=== PATIENT | male | born 1955 | race Caucasian/White ===

== ENCOUNTER 2016-07-30 09:09 | Inpatient (IN) | payer BC ==
--- NOTE | 2016-07-26 18:20 | HP ---
HISTORY AND PHYSICAL: DATE OF ADMISSION/SURGERY: 07/30/16 ATTENDING SURGEON: Dr. Ugarte (DICTATED BY WEST MONTENEGRO) PROCEDURE: Right total knee arthroplasty. CHIEF COMPLAINT: Right knee pain. HISTORY OF PRESENT ILLNESS: Mr. Hall is a 61-year-old gentleman with complaints of right knee pain. He has failed conservative management and has elected to proceed with a right total knee arthroplasty which is scheduled for 07/30/[address] Ugarte. PAST MEDICAL HISTORY: 1. Abdominal aortic aneurysm. 2. Thoracic aortic aneurysm. 3. Anemia. 4. Depression. 5. Anxiety. 6. Hypertension. 7. Sleep apnea. PAST SURGICAL HISTORY: 1. AAA repair. 2. Left total knee arthroplasty. 3. Bariatric surgery. 4. Tonsillectomy. CURRENT MEDICATIONS: 1. Altace. 2. Toprol. 3. Lipitor. 4. Lexapro. 5. Women's one-a-day. 6. Citracal. 7. Vitamin D. 8. Vitamin B12. 9. Vitamin D3. 10. Xanax. 11. Aspirin. ALLERGIES: To BISMUTH and ERYTHROMYCIN. FAMILY HISTORY: Heart disease and hypertension. SOCIAL HISTORY: A 61-year-old gentleman who lives with his . He does not smoke or use drugs. Uses occasional alcohol. REVIEW OF SYSTEMS: A complete 14-point review of systems was reviewed with the patient, was positive for mild anemia. PHYSICAL EXAMINATION GENERAL: Well developed, well nourished, in no acute distress. VITAL SIGNS: Stands 6 feet 3 inches tall, weighs 305 pounds. Blood pressure is 139/83, heart rate 55. HEENT: Normocephalic, atraumatic. NECK: Supple. PULMONARY: The lungs are clear to auscultation bilaterally. CARDIO: Regular rate and rhythm. ABDOMEN: Soft, nontender, nondistended. NEUROLOGICAL: He is alert and oriented x3. Cranial nerves II through XII are intact. MUSCULOSKELETAL: Right lower extremity: The skin is intact. He has no open wounds or abrasions. There is a [id number] joint effusion. He has tenderness over the medial and lateral joint line. His lower extremity muscle group strengths are intact at 5/5. He has intact sensation, 2+ dorsalis pedis pulses. ASSESSMENT AND PLAN: Mr. Hall is a 61-year-old gentleman with complaints of right knee pain secondary to advanced osteoarthritis. He has failed conservative management and has elected to proceed with a right total knee arthroplasty which is scheduled for 07/30/[address] Ugarte discussed the risks and benefits of the surgery and all of his questions were answered. Coumadin, Colace, and Percocet were sent to his pharmacy for postoperative pain control and DVT prophylaxis. He will see Dr. Ugarte back 2 weeks after the surgery. WEST MONTENEGRO [id number]/[facility] #: [id number] MTDMacy
[~2016-07-30 09:09] MED LIST: Buffered Lidocaine 0.9% SYRIN* 5 ML/SYR SYRINGE INTRADERM ONE; Buffered Lidocaine 0.9% SYRIN* 5 ML/SYR SYRINGE ONE; Dexamethasone IV* 4 MG/ML 1 ML (4 MG) ONE; Famotidine IV* 10 MG/ML 2 ML (20 mg) IV ONE; Famotidine IV* 10 MG/ML 2 ML (20 mg) ONE; KETAMINE HCL* 50 MG/ML 10 ML VIAL ONE; Ketorolac INJ* 30 MG/ML 1 ML VIAL ONE; Lidocaine 2% PF * 5 ML VIAL ONE; Midazolam* 1 MG/ML 5 ML VIAL (5 MG) ONE; Ondansetron INJ* 2 MG/ML VIAL ONE; Propofol* 10 MG/ML 20 ML BTL IV PUSH ONE; ceFAZolin 2 GM PREMIX(*) 2 GM/50 ML BAG IVPB ONE; fentaNYL* 50 MCG/ML 2 ML VIAL (100 MCG VIAL) ONE
[2016-07-30] MEDS ORDERED: Bupivacaine 0.5% SDV PF* 30 ML VIAL ONE (10:38)
[2016-07-30] MEDS ORDERED: Morphine PF AMP (0.5MG/ML)* 5 MG/10 ML AMP ONE (10:38)
[2016-07-30] MEDS ORDERED: Propofol* 500 MG/50 ML BTL ONE (10:38)
[2016-07-30] MEDS ORDERED: Midazolam* 1 MG/ML 5 ML VIAL (5 MG) ONE (11:48)
[2016-07-30] MEDS ORDERED: Glycopyrrolate IV* 0.2 MG/ML 1 ML VIAL ONE (12:00)
[2016-07-30] MEDS ORDERED: fentaNYL* 50 MCG/ML 2 ML VIAL (100 MCG VIAL) IV PRN (12:35)
[2016-07-30] MEDS ORDERED: Ondansetron INJ* 2 MG/ML VIAL IV PRN ×2 (12:35→12:37)
[2016-07-30] MEDS ORDERED: DiMENhydriNATE IV* 50 MG/ML VIAL IV PUSH PRN (12:35)
[2016-07-30] MEDS ORDERED: Phenylephrine INJ* 50 MG in NS 0.9% 250 ML* 245 ML IV PRN (12:35)
[2016-07-30] MEDS ORDERED: oxyCODONE/Acetamin 5/325 MG* TAB PO PRN ×2 (12:37)
[2016-07-30] MEDS ORDERED: Lactated Ringers 500 ml BAG* 500 ML IV PRN (12:37)
[2016-07-30] MEDS ORDERED: diPHENhydraMINE IV* 50 MG/ML 1 ml VIAL (BENADRYL) IV PRN (12:37)
[2016-07-30] MEDS ORDERED: EPHEDrine (Pressors)* 50 MG/ML VIAL IV PUSH PRN (12:37)
[2016-07-30] MEDS ORDERED: Ketorolac INJ* 30 MG/ML 1 ML VIAL IV PRN (12:37)
[2016-07-30] MEDS ORDERED: Naloxone* 0.4 MG/ML 1 ML VIAL IV PRN (12:45)
[2016-07-30] MEDS ORDERED: Ropivacaine* 300 MG in NS 0.9% 250 ML* 240 ML EPIDURAL SCH (13:00)
[2016-07-30] MEDS ORDERED: Polyethylene Glycol 3350* 17 GM PACKET PO PRN (14:24)
[2016-07-30] MEDS ORDERED: Magnesium Hydroxide LIQ* 30 ML UDC PO PRN (14:24)
[2016-07-30] MEDS ORDERED: Bisacodyl SUPP* 10 MG SUPP PR PRN (14:24)
[2016-07-30] MEDS ORDERED: Acetaminophen TAB* 325 MG PO PRN (14:24)
[2016-07-30] MEDS ORDERED: ALPRAZolam TAB* 0.25 MG PO PRN (14:28)
--- NOTE | 2016-07-30 16:12 | RAD ---
HISTORY: Status post right knee arthroplasty COMPARISONS: May 29, 2016 VIEWS: 2, Frontal and lateral views of the right knee FINDINGS: BONE DENSITY: Normal. BONES: The patient is status post right knee arthroplasty. There is no hardware failure or osteolysis. JOINTS: The patient is status post right knee arthroplasty ALIGNMENT: There is no dislocation. SOFT TISSUES: There are postsurgical changes to the soft tissues OTHER FINDINGS: None. IMPRESSION: STATUS POST RIGHT KNEE ARTHROPLASTY
[2016-07-30] MEDS ORDERED: Warfarin TAB(*) 6 MG PO ONE (17:00)
--- NOTE | 2016-07-30 17:11 | CONS ---
CC: Dr. Mckenzie Ugarte; Dr. Mcdermott, [place], [place] * CONSULTATION REPORT: DATE OF CONSULT: 07/30/16 REQUESTING PHYSICIAN FOR CONSULT: Dr. Mckenzie Ugarte. PRIMARY CARE PROVIDER: Dr. Mcdermott [place], [place]. ATTENDING PHYSICIAN WHILE IN THE HOSPITAL: Pablo Tanner MD (report dictated by Woo Vargas NP) REASON FOR MEDICAL CONSULTATION: Evaluation and medical management of comorbid medical problems. HISTORY OF PRESENT ILLNESS: Mr. Hall is a 61-year-old male patient with a history of osteoarthritis, who presented to Dr. Ugarte In the outpatient setting with complaints of right knee pain. He had had his left knee replaced previously. He was failing outpatient conservative management and elected to proceed with a right total knee. He underwent the procedure today. He does carry a history of AAA, thoracic aneurysm, anemia, depression, anxiety, hypertension, sleep apnea and because of this, we are asked to evaluate in consult. He was evaluated in the PACU. He says he is feeling well. He says he feels a little sleepy but he denies any chest pain, no shortness of breath, no abdominal pain. He says he cannot feel his legs yet. He did receive Duramorph and spinal anesthesia and he has an epidural. He is unable to plantar or dorsiflex the feet but he says other than these complaints, he is feeling well and his pain is well controlled. Because of his medical complexity, we are asked to evaluate in consult. PAST MEDICAL HISTORY: Significant for: 1. AAA, status post repair. 2. Thoracic aortic aneurysm which is followed by Dr. Rudd in [place]. 3. Anemia. 4. Depression. 5. Anxiety. 6. Hypertension. 7. OSVALDO. 8. CAD. PAST SURGICAL HISTORY: 1. He has had a AAA repair. 2. He has had a left total knee replacement. 3. Status post right total knee replacement today. 4. Bariatric surgery. 5. Tonsillectomy. HOME MEDICATIONS: According to the preop list includes: 1. Multivitamin 1 tablet p.o. b.i.d. 2. Toprol-XL 25 mg daily. 3. Ramipril 2 tabs p.o. q.p.m. 4. Lipitor 20 mg p.o. q.p.m. 5. Lexapro 10 mg p.o. q.a.m. 6. Vitamin B12 one tablet sublingual q.a.m. 7. Caltrate with vitamin D 2 tablets p.o. b.i.d. 8. Amino acid 400 mg p.o. q.a.m. 9. Aspirin 81 mg daily. 10. Xanax 0.25 mg p.o. daily as needed. ALLERGIES: To medications include: 1. PEPTO-BISMOL. 2. ERYTHROMYCIN. FAMILY HISTORY: Reviewed, noncontributory. SOCIAL HISTORY: He does not smoke. He occasionally drinks may be 1 to 2 times a week. His surrogate decision maker is his . REVIEW OF SYSTEMS: There is no documented fever. He denied having any significant weight change. There was no double vision. There was no ear discharge. He denies having any rhinorrhea. No sore throat. No thyroid enlargement. Denies having any chest pain. No orthopnea. No nocturnal dyspnea. There is no abdominal pain. No nausea, no vomiting. No dysuria, no frequency. No seizure. No loss of consciousness. No pruritus. No skin ulcerations. Review of 14 systems completed, all others negative. PHYSICAL EXAM: Vital Signs: Blood pressure of 113/78, pulse of 44, respirations were 18, O2 sat 92% on 4 L, temperature 97.9. General: At this time, Mr. Hall is a 61-year-old male patient. He is sitting in the PACU bed. He does not appear to be in acute distress. HEENT: Head atraumatic. Eyes: Sclerae anicteric, not pale. Pupils are reactive to light. Neck was supple. Throat: Oral mucosa appears to be moist. No oropharyngeal erythema. Heart: Sounds S1, S2. Regular rate and rhythm. No murmurs, rubs, or gallops. Lungs: Clear to auscultation. No wheezes, rales, or rhonchi. Abdomen is soft, flat , nontender. Bowel sounds hypoactive. Extremities: Pulses were 2+ throughout. Distal CSM checks were intact to the right lower extremity, exception he does not have movement at this point. He had 5/5 strength in the upper extremities. Neurologically, he is drowsy, but he awakens to name. He is alert. He is oriented x3. His tongue is in midline. Industrial Relations Worker are equal. No gross focal deficits. His skin is intact, exception he has an incision to the right knee, which is covered with the dressing, it is clean, dry and intact. DIAGNOSTIC STUDIES/LAB DATA: Preop revealed WBC of 6.9, RBC of 4.56, hemoglobin 13.7, hematocrit of 41, platelet count of 185. Sodium 139, potassium 4.3, chloride 105, bicarb 29, BUN 22, creatinine 0.76, glucose 85. He did have preop EKG with Dr. Burks, which showed sinus bradycardia, rate of 54 , no ST elevation or T-wave inversions were noted. He had an echo which showed an EF of 52% in the outpatient setting. Old medical records were reviewed. ASSESSMENT AND PLAN: Mr. Hall is a 61-year-old male patient with multiple medical problems, coming to Dr. Ugarte's service today for an elective total knee. Hospitalist service was asked to evaluate in consult. Recommendations at this point are: 1. Status post right total knee. I will defer the management to Dr. Ugarte. 2. History of abdominal aortic aneurysm and thoracic aneurysm. He could follow in the outpatient setting with his primary vascular surgeon. We will monitor for any signs of obvious dissection or enlargement such as chest pain or shortness of breath and will continue with blood pressure control. 3. Anemia. We will follow his H and H. 4. Depression and anxiety. Continue medications as prescribed. 5. Hypertension. Continue his metoprolol with hold parameters for his bradycardia and will restart the Altace when able. 6. Obstructive sleep apnea. We will continue CPAP. 7. Coronary artery disease. Follow with his primary child and adolescent psychologist and follow with his primary care provider. 8. DVT prophylaxis per the primary team. 9. Fluid, electrolytes and nutrition. I would recommend a heart healthy diet. 10. Code status is full code. TIME SPENT: Time spent on the consult was 60 minutes, greater than half that time was spent [id number] with the patient obtaining my history and physical, the other half time was spent going over plan of care with the patient, implementing the plan of care. I did discuss the plan of care with my attending, Dr. Tanner, who is in agreement. WOO VARGAS NP [id number]/[facility] #: [id number] [facility]
[2016-07-30] MEDS ORDERED: Ramipril CAP* 10 MG PO SCH (18:00)
[2016-07-30] MEDS: Atorvastatin* 20 MG TAB PO SCH (18:15)
[2016-07-30] MEDS: ceFAZolin VIAL(*) 1 GM in NS 0.9% 50 ML* 50 ML IVPB SCH (20:31)
[2016-07-30] MEDS: Docusate CAP* 100 MG PO SCH (20:59)
[2016-07-31] MEDS: ceFAZolin VIAL(*) 1 GM in NS 0.9% 50 ML* 50 ML IVPB SCH ×2 (03:46→12:27)
[2016-07-31] MEDS ORDERED: Morphine INJ* 2 MG/ML 1 ML SYRINGE IV PRN (04:00)
[2016-07-31] MEDS: oxyCODONE/Acetamin 5/325 MG* TAB PO PRN ×5 (05:48→21:32)
[2016-07-31] MEDS ORDERED: oxyCODONE/Acetamin 5/325 MG* TAB PO PRN (06:00)
[2016-07-31] MEDS ORDERED: Ondansetron INJ* 2 MG/ML VIAL IV PRN (06:00)
[2016-07-31] MEDS ORDERED: diPHENhydraMINE IV* 50 MG/ML 1 ml VIAL (BENADRYL) IV PRN (06:00)
[2016-07-31 06:26] LABS: Hematocrit 32 % (42-52)
[2016-07-31 06:39] LABS: BUN/Creatinine Ratio 23.4 (8-20); Calcium 8.1 mg/dL (8.6-10.3); EGFR African American 131.2 (>60)
[2016-07-31] MEDS: Docusate CAP* 100 MG PO SCH ×2 (08:42→19:15)
[2016-07-31] MEDS: Metoprolol Succinate XL TAB* 25 MG PO SCH (08:42)
[2016-07-31] MEDS ORDERED: TOPROL 25 MG PO SCH (09:00)
[2016-07-31] MEDS ORDERED: Citalopram TAB* 20 MG PO SCH (09:00)
--- NOTE | 2016-07-31 09:20 | PN ---
Progress Note - Progress Note SOAP: Subjective: []Patient seen OOB in chair. Did very well with PT/OT session this am. He denies SOB, chest pain or dizziness. Objective: [] Vital Signs Temp 98.6 F 07/31/16 07:30 Pulse 68 07/31/16 07:30 Resp 18 07/31/16 08:00 BP 114/62 07/31/16 07:30 Pulse Ox 94 07/31/16 07:30 Intake & Output 07/30/16 07/31/16 07/31/16 18:59 06:59 18:59 Intake Total 2420 3063 167 Output Total 450 1125 275 Balance 1970 1938 -108 Weight 305 lb Intake: IV Fluids 2300 1213 167 LR 2200 1213 167 NS 50ML, Cefazolin 1G 50 NS 50ML, Cefazolin 2G 50 Oral 120 1850 Output: Durant 450 1125 275 Other: # Bowel Movements 0 Laboratory Results - last 24 hr 07/31/16 07/31/16 07/31/16 05:54 05:54 05:54 Hgb 11.0 L Hct 32 L INR (Anticoag Therapy) 1.06 Sodium 135 Potassium 4.0 Chloride 102 Carbon Dioxide 30 Anion Gap 3 BUN 18 Creatinine 0.77 Est GFR ( Amer) 131.2 Est GFR (Non-Af Amer) 102.0 BUN/Creatinine Ratio 23.4 H Glucose 120 H Calcium 8.1 L Right knee drain discontinued this am by Dr. Ugarte, no complications dressing Right knee remains dry and intact calf non tender and soft +DF/PF right ankle Assessment: []s/p Right total knee arthroplasty POD #1 Plan: []PT/OT WBAT RLE Coumadin w Lovenox bridge 8 mg today Home w VNS in 1-2 days
--- NOTE | 2016-07-31 11:44 | OP ---
OPERATIVE REPORT: DATE OF OPERATION: 07/30/16 DATE OF : 51 SURGEON: Mckenzie Ugarte MD AUDITOR TAX: WEST Haas Ms. did help throughout the procedure with preparation of the leg, wound retraction, manipu lation of the leg, and wound closure. ANESTHESIOLOGIST: Dr. Gilliam. ANESTHESIA: Spinal epidural. PRE-OP DIAGNOSIS: Severe end-stage degenerative osteoarthritis of the right knee joint. POST-OP DIAGNOSIS: Severe end-stage degenerative osteoarthritis of the right knee joint. OPERATIVE PROCEDURE: Right total knee arthroplasty. TOURNIQUET TIME: 57 minutes. ESTIMATED BLOOD LOSS: 300 cc. COMPLICATIONS: None. SPECIMEN: Bone and cartilage from the right knee joint sent to pathology. HARDWARE USED: This is cemented [employer] hardware. Two packages of bone cement. For the f emur, a size 7 right posterior stabilized Legion Oxinium femoral component. For the tibia, a size 7 right tibial base plate. For the insert, a 15 mm posterior stabilized articular insert, size 7/8. For the patella, a 35-mm 3-peg all poly patella. BRIEF HISTORY/INDICATIONS: Mr. Hall is a 61-year-old gentleman with years of increasingly severe r ight knee pain. He failed conservative treatment with anti- inflammatories, pain medication, intraa rticular injections, and physical therapy. Radiographs showed severe deformation of the medial tibia l plateau at the level of contact. He elected to undergo right total knee arthroplasty due to swathi nued pain and decreased quality of life. Informed consent was obtained from the patient. He unders tood the risks of the surgery included, but were not limited to bleeding, infection, damage to nearb y structures, continued pain, need for further surgery, intraoperative fracture, nerve palsy, hardwa re failure, loosening, stroke, heart attack, blood clot, and . He wished to proceed. INTRAOPERATIVE FINDINGS: Intraoperatively, the patient was noted to have severe end-stage osteoarth ritis with tricompartmental loss of cartilage. The medial tibial plateau had bone loss and bony def ormation. There was extensive osteophyte formation. Preop range of motion was 15 to 130 degrees of flexion. Postop range of motion was full extension t o 130 degrees of flexion. DESCRIPTION OF PROCEDURE: Mr. Hall was identified in the preanesthesia unit. His right lower extr emity was marked as the correct operative side. Informed consent was signed and placed in the chart . The patient was taken to the operating room and placed under spinal epidural anesthesia. A Durant catheter was placed. Tourniquet was placed on the right thigh. Right lower extremity was prepped a nd draped in the usual sterile fashion. Preop time-out was made to correctly identify the patient's side and site. Appropriate perioperative antibiotics were given within 1 hour of incision. Tourniquet was inflated until the tourniquet time for this procedure was 57 minutes. A 15 cm midlin e incision was made with a 10 blade and carried down to the extensor mechanism. New 10 blade was us ed to make a standard medial parapatellar arthrotomy. The patella was subluxed laterally. Electroc autery was used to elevate soft tissue off the superomedial tibia to the mid sagittal plane. It was noted that there was significant loss of bone along the medial tibial plateau with extensive osteop hyte formation. Rongeur was used to remove some osteophytes. The knee was flexed up. There was no visible ACL. Large amount of osteophyte around the femur. A drill was used to enter the distal fe mur. Intramedullary distal femoral cutting guide was placed. A 9 mm of distal femur bone was cut w ith an oscillating saw. External rotation guide was pinned on the distal femur. Distal femur was s ized to a size 7. Size 7 multi-cutting jig was pinned on the distal femur. Oscillating saw was use d to make the appropriate 4 chamfer cuts. PCL was completely released. The tibia was subluxed anteriorly. Extramedullary tibial cutting guid e was placed. Proximal tibial cut was made with the oscillating saw perpendicular to the mechanical axis of the tibia. The bone was carefully removed. The knee was brought out into extension and a spacer block fit well. Medial and lateral ligamentous balancing was deemed to be appropriate. Flexion and extension gaps were well balanced. The knee was flexed up. Lamina product manager e commerce was placed both medially and laterally. Any remaining menis cus was carefully removed using electrocautery. Multiple osteophytes and loose bodies were removed from the posterior capsule. Curved osteotome was used to remove posterior osteophytes along the pos terior femoral condyle. Tibial tray and drop kareem were placed. Once again, it was confirmed that th ere was a satisfactory tibial cut. A size 7 right femoral trial was impacted onto the distal femur and had good fit. The box for the posterior stabilized implant was prepared using a keel punch and box cut osteotome. Trial 7 tibial tray with 11 mm insert was placed. The knee was taken through a range of motion and noted to have some looseness in flexion and extension. A 13 mm insert had arnold r stability. There was good patellofemoral tracking. The patella was everted. 9 mm of patellar bone and cartilage was carefully removed with an oscillat ing saw. Patella was sized to a size 35. Three pegs holes were drilled through the size 35 guide. Trial 35 patella was placed and the knee was taken through a range of motion. There was good daily lofemoral tracking. All trials were carefully removed. The tibia was subluxed anteriorly and sized to a size 7. Proxim al tibia was prepared using a size 7 keel punch. All bony cut surfaces were copiously irrigated wit h sterile saline and dried. Final implants were cemented into place starting with the tibia, follow ed by the femur and last the patella. A 15 mm insert trial was placed and the knee was brought into full extension. Tourniquet was turned down at 57 minutes. The knee was copiously irrigated. Once the cement had fully cured, the insert trial was removed. Electrocautery was used to obtain meticul ous hemostasis. Any excess cement was removed from around the implants and the capsule. Final impl ant chosen was a 15 mm posterior stabilized articular insert size 7/8. This was locked into positio n on the tibial tray without difficulty. Stability of the insert was checked and rechecked and note d to be stable. Final range of motion was full extension to 130 degrees of flexion. The knee was copiously irrigate d with sterile saline. Extensor mechanism was closed using interrupted #1 Vicryl over a medium Hemo vac drain. The rest of the incision was closed in a layered fashion using 0 and 2-0 Vicryl. Skin w as closed using running 3-0 nylon suture. Sterile Xeroform, 4x4's, and Webril were used to cover th e incision. Franklin wrap and cold pack were placed over this. Intended weightbearing will be weightbearing as tolerated. Intended DVT prophylaxis will be Coumadi n with a Lovenox bridge. The patient's anesthesia was reversed without difficulty and he was taken to the PACU in stable condition. [id number]/[facility] #: [id number]
[2016-07-31] MEDS: Calcium Carbonate CHEW TAB* 500 MG (TUMS) PO PRN ×2 (12:27→18:25)
[2016-07-31] MEDS: Enoxaparin(*) 30 MG/0.3 ML SYR SUBCUT SCH (12:27)
--- NOTE | 2016-07-31 13:26 | PN ---
Subjective Date of Service: 07/31/16 Interval History: Patient seen this afternoon. Feeling well overall, did well with PT this AM. Some heartburn a few minutes ago but no N/V. Durant out today but no UOP yet. No BM yet. Family History: Unchanged from Admission Social History: Unchanged from Admission Past Medical History: Unchanged from Admission Objective Active Medications: Acetaminophen (Tylenol Tab*) 650 mg PO Q4H PRN Atorvastatin Calcium (Lipitor*) 20 mg PO QPM DINAH Bisacodyl (Dulcolax Supp*) 10 mg GA DAILY PRN Calcium Carbonate (Tums*) 500 mg PO Q4H PRN Diphenhydramine HCl (Benadryl Iv*) 12.5 mg IV Q6H PRN Docusate Sodium (Colace Cap*) 100 mg PO BID DINAH Enoxaparin Sodium (Lovenox(*)) 30 mg SUBCUT Q24H DINAH Escitalopram Oxalate (Lexapro (Nf)) 10 mg PO QAM DINAH Lactated Ringer's (Lactated Ringers 1000 Ml Bag*) 1,000 mls @ 100 mls/hr IV PER RATE DINAH Lactulose (Lactulose*) 30 ml PO Q6H PRN Magnesium Hydroxide (Milk Of Magnesia Liq*) 30 ml PO Q6H PRN Metoprolol Succinate (Toprol Xl Tab*) 25 mg PO QAM DINAH Morphine Sulfate (Morphine Inj (Syringe)*) 2 mg IV Q2H PRN Ondansetron HCl (Zofran Inj*) 4 mg IV Q6H PRN Oxycodone HCl (Roxycodone Tab*) 10 mg PO Q4H PRN Oxycodone/Acetaminophen (Percocet 5/325 Tab*) 1 tab PO Q3H PRN Oxycodone/Acetaminophen (Percocet 5/325 Tab*) 2 tab PO Q3H PRN Polyethylene Glycol/Electrolytes (Miralax*) 17 gm PO DAILY PRN Warfarin Sodium (Coumadin Tab(*)) 8 mg PO ONCE@1700 ONE Vital Signs 07/30/16 07/30/16 07/30/16 14:26 14:30 14:35 Temperature 97.9 F Pulse Rate 51 45 49 Respiratory 20 18 17 Rate Blood Pressure 116/79 113/75 110/73 (mmHg) O2 Sat by Pulse 93 94 94 Oximetry 0607/30/16 07/30/16 14:40 15:00 15:15 Temperature Pulse Rate 45 44 48 Respiratory 19 12 15 Rate Blood Pressure 114/78 113/78 119/74 (mmHg) O2 Sat by Pulse 94 92 96 Oximetry 07/31/16 07/31/16 07/31/16 03:40 05:48 07:30 Temperature 97.6 F 98.6 F Pulse Rate 58 68 Respiratory 18 14 16 Rate Blood Pressure 111/66 114/62 (mmHg) O2 Sat by Pulse 97 94 Oximetry 07/31/16 07/31/16 07/31/16 11:43 11:54 12:03 Temperature 97.6 F Pulse Rate 58 Respiratory 16 18 Rate Blood Pressure 63/41 102/58 (mmHg) O2 Sat by Pulse 93 Oximetry Oxygen Devices in Use Now: None Appearance: Elderly, M, sitting in chair in NAD Eyes: No Scleral Icterus Ears/Nose/Mouth/Throat: Mucous Membranes Moist Neck: NL Appearance and Movements; NL JVP Respiratory: Symmetrical Chest Expansion and Respiratory Effort, Clear to Auscultation Cardiovascular: NL Sounds; No Murmurs; No JVD, RRR Abdominal: NL Sounds; No Tenderness; No Distention Lymphatic: No Cervical Adenopathy Extremities: - - Mild RLE edema, LANCE wrap in place over R knee Skin: No Rash or Ulcers Neurological: Alert and Oriented x 3 Result Diagrams: 07/31/16 05:54 07/31/16 05:54 Microbiology and Other Data: Microbiology 07/30/16 09:12 Urine Culture - Final Urine No Growth (<1,000 CFU/mL) Assess/Plan/Problems-Billing Assessment: 61 yo M with hx of HTN, thoracic aortic aneurysm, AAA, OSVALDO, CAD, depression now s/p R TKA - Patient Problems (1) Status post total knee replacement, right Current Visit: Yes Comment: Management/analgesia as per Ortho. On coumadin. (2) HTN (hypertension) Current Visit: Yes Comment: Continue Metoprolol with parameters. Hold on ACEI for now. (3) OSVALDO (obstructive sleep apnea) Current Visit: Yes Comment: CPAP (4) CAD (coronary artery disease) Current Visit: Yes Comment: Continue beta-robert, lipitor. ASA held, patient receiving coumadin. Will need to clarify whether he will remain off of ASA while on coumadin. (5) Depression Current Visit: Yes Comment: Continue Lexapro (6) DVT prophylaxis Current Visit: Yes Comment: Lovenox/Coumadin
[2016-07-31] MEDS ORDERED: Warfarin TAB(*) 4 MG PO ONE (17:00)
[2016-07-31] MEDS: Atorvastatin* 20 MG TAB PO SCH (18:21)
[2016-07-31] MEDS: oxyCODONE TAB* 5 MG TAB PO PRN ×2 (19:14→23:30)
[2016-08-01] MEDS: oxyCODONE/Acetamin 5/325 MG* TAB PO PRN ×4 (03:39→13:17)
[2016-08-01 06:12] LABS: Hematocrit 33 % (42-52); Hemoglobin 10.7 g/dl (14.0-18.0)
--- NOTE | 2016-08-01 07:39 | PN ---
Progress Note - Progress Note SOAP: Subjective: Pt. alert, was able to urinate with a bolus overnight. Pain controlled. Objective: RLE - dressing changed, sig bruising, mod edema. inc c/d/i. distally nvi. Vital Signs: Temp Pulse Resp BP Pulse Ox 98.0 F 67 18 115/61 97 08/01/16 07:13 08/01/16 07:13 08/01/16 07:29 08/01/16 07:13 08/01/16 07:13 Laboratory Results - last 24 hr 08/01/16 08/01/16 05:40 05:40 Hgb 10.7 L Hct 33 L INR (Anticoag Therapy) 1.15 H Assessment: 61 yo M pod 2 s/p RTKA Plan: wbat rle pt/ot 10 mg coumadin tonnik, lovenox today no ecasa with coumadin plan d/c to home this afternoon
[2016-08-01] MEDS ORDERED: PTO: Escitalopram (NF) 10 MG TAB PO SCH (09:00)
[2016-08-01] MEDS: Metoprolol Succinate XL TAB* 25 MG PO SCH (09:23)
[2016-08-01] MEDS: Docusate CAP* 100 MG PO SCH (09:24)
[2016-08-01] MEDS: Enoxaparin(*) 30 MG/0.3 ML SYR SUBCUT SCH (11:08)
[2016-08-01] MEDS: Calcium Carbonate CHEW TAB* 500 MG (TUMS) PO PRN (11:08)
[2016-08-01 12:35] VITALS: BP 103/61
[2016-08-01] MEDS ORDERED: Warfarin TAB(*) 10 MG PO ONE (14:00)
--- NOTE | 2016-08-01 22:22 | DS ---
DISCHARGE SUMMARY: DATE OF ADMISSION: 07/30/16 DATE OF DISCHARGE: 08/01/16 ADMISSION DIAGNOSIS: Severe end-stage degenerative osteoarthritis, right knee. DISCHARGE DIAGNOSIS: Severe end-stage degenerative osteoarthritis, right knee. SURGERY PERFORMED: Right total knee arthroplasty. HOSPITAL COURSE: The patient is a 61-year-old male with years of increasingly severe right knee bong n. He failed conservative management with treatment including antiinflammatories, pain medication, intraarticular cortisone injections, and physical therapy. His x-rays revealed severe medial tibial plateau [id number] wear and due to his decrease in quality of life from his severe pain, he elect ed to proceed with surgical intervention. He was taken to the operating room under the care of Dr. Mckenzie Ugarte on the date of 07/30/16 for the aforementioned procedure. He tolerated the procedure we ll, left the operating room in stable condition. Postoperatively, he did very well with physical the rapy and occupational therapy exercises. He did have a brief issue with postoperative urinary reten tion which required a straight catheterization x1. He was then able to void after receiving a fluid bolus. He had no other medical complications during his hospital stay and it was felt he was stabl e medically and orthopedically for discharge to home on the date of 08/01/16. CONDITION ON DISCHARGE: The patient is afebrile. His vital signs are stable. His right knee incis ion has a scant amount of bloody drainage. There is no evidence of infection. His calf is nontende r and soft. His neurovascular status is intact with positive dorsiflexion and plantar flexion of th e right ankle. PLAN: Discharge to home. The patient will receive 10 mg of Coumadin at the hospital today, Angelique kirkland, 08/01/16. He will then be instructed to take 4 mg of Coumadin on August 02, 2 mg of Coumadin on August 03, and 2 mg of Coumadin on August 04. He will have a visiting home nurse evaluate him Friruben and he will have a blood draw with Coumadin dosage to follow from the office. He will use Percoce t 5/325 mg as needed for pain. He is instructed to call the office if he has increased drainage, in creased swelling of the knee or calf, calf pain, chest pain, shortness of breath. We recommend a fo llowup in the office as scheduled in 10 to [address] Ugarte. [place] [id number]/[facility] #: [id number]
== END 2016-08-01 13:40 | disposition home health service (06) | DRG 302 ==
LOC: AA 09:09 → SSU 14:24
PROVIDERS: ADMIT Orthopaedic Surgery Adult Reconstructive Orthopaedic Surgery; ATTEND Orthopaedic Surgery Adult Reconstructive Orthopaedic Surgery
PROC: 0SRC0J9 Replacement of Right Knee Joint with Synthetic Substitute, Cemented, Open Approach (ICD-10-PCS; principal; 2016-07-30 10:30)
DX: M17.11 Unilateral primary osteoarthritis, right knee (principal); I10 Essential (primary) hypertension; R33.9 Retention of urine, unspecified; Z96.652 Presence of left artificial knee joint; F32.9 Major depressive disorder, single episode, unspecified; F41.9 Anxiety disorder, unspecified; Z98.84 Bariatric surgery status; Z88.1 Allergy status to other antibiotic agents; Z88.8 Allergy status to other drugs, medicaments and biological substances; Z82.49 Family history of ischemic heart disease and other diseases of the circulatory system; L29.9 Pruritus, unspecified; R12 Heartburn; G47.33 Obstructive sleep apnea (adult) (pediatric); I25.10 Atherosclerotic heart disease of native coronary artery without angina pectoris; D64.9 Anemia, unspecified; M25.761 Osteophyte, right knee
CPT/HCPCS: 36415; 62327; 80048; 85014; 85018; 85610; 87086; 88305; 88311; 94760; A9270-GY; C1776; J0690; J1100; J1650; J1885; J2250; J2405; J2704; J2795; J3010